=== PATIENT | male | born 2000 | race Hispanic/Latino ===

== ENCOUNTER → 2021-06-02 08:46 | Emergency (ER) | payer BC, SELFPAY ==
--- NOTE | ~2021-06-02 | XR_ITS ---
EXAMINATION: XR chest 2V DATE: 06/02/2021 09:11 INDICATION: Chest pain TECHNIQUE: PA and lateral views of the chest are obtained. COMPARISON: None available FINDINGS: The lungs are free of acute opacities. There is no pleural effusion or pneumothorax. The ca rdiomediastinal silhouette is normal. The visualized bones and soft tissues are unremarkable. IMPRESSION: 1. No acute cardiopulmonary abnormality. Reviewed, dictated and finalized at location A.
--- NOTE | 2021-06-02 08:53 | ECG_ITS ---
Measurements Intervals Epps Rate: 101 P: 67 AR: 155 QRS: -22 QRSD: 82 T: 44 QT: 325 QTc: 421 Interpretive Statements SINUS TACHYCARDIA LEFT ATRIAL ENLARGEMENT INCOMPLETE RIGHT BUNDLE BRANCH BLOCK BASELINE ARTIFACT- II, III, AVR, AVF, V2-V6 BORDERLINE ECG Electronically Signed On 06-02-2021 10:53:29 CDT by Trevor Bosch D.O.
[2021-06-02 08:56] VITALS: BP 148/91; PULSE 100; RESP 14; TEMP 36.5; O2SAT 99
[2021-06-02 09:19] LABS: Basophils Percent Auto 0.3 % (0.2-1.2); Eosinophils Absolute Auto 0.1 K/mm3 (0-0.3); Eosinophils Percent Auto 1.1 % (0-4.4); Hematocrit 45.7 % (42.0-52.0); Hemoglobin 15.5 g/dL (14.0-18.0); Immature Granulocyte Absolute 0.03 K/mm3 (0.00-0.031); Immature Granulocyte Percent A 0.5 % (0-0.5); Lymphocytes Absolute Auto 2.11 K/mm3 (0.9-3.2); Lymphocytes Percent Auto 31.9 % (18.3-44.2); Mean Corpuscular HGB Conc 33.9 g/dl (32-36); Mean Corpuscular Hemoglobin 30.2 pg (26-34); Mean Corpuscular Volume 89.1 fl (80-100); Mean Platelet Volume 9.4 fl (7.4-10.4); Monocytes Absolute Auto 0.6 K/mm3 (0.1-0.6); Monocytes Percent Auto 8.3 % (2.6-8.5); Neutrophils Absolute Auto 3.8 K/mm3 (1.3-6.7); Neutrophils Percent Auto 57.9 % (45.5-73.1); Platelet Count Result 249 k/mm3 (150-375); Red Blood Count 5.13 M/mm3 (4.6-6.20); Red Cell Distribution Width 12.5 % (11.5-14.5); White Blood Count 6.6 K/mm3 (4.5-10.0)
[2021-06-02 09:28] LABS: INR 1.2; Prothrombin Time 14.8 Seconds (11.1-14.7)
[2021-06-02 09:29] LABS: Partial Thromboplastin Time 30.7 SECONDS (22.3-36.8)
[2021-06-02 09:32] LABS: Anion Gap 8 mmol/L (8-16); Blood Urea Nitrogen 12 mg/dL (9-20); Calcium 8.9 mg/dL (8.4-10.2); Carbon Dioxide 28 mmol/L (22-30); Chloride 105 mmol/L (98-107); Estimated CRCL calculation 110 ml/min; Estimated Glomerular Filt Rate > 60; Glucose 97 mg/dL (65-110); Potassium 3.7 mmol/L (3.4-5.0); Sodium 141 mmol/L (137-145)
--- NOTE | 2021-06-02 09:36 | ED.CHESTPAIN ---
HPI - Chest Pain General Chief Complaint: Chest Pain Stated Complaint: right sided chest pain Time Seen by Provider: 06/02/21 08:53 Source: patient and RN notes reviewed Mode of arrival: ambulatory Limitations: no limitations History of Present Illness HPI narrative: This is a 21 year old male who presents for evaluation of right anterior chest pain. Patient has been having intermittent sharp, stabbing chest pain. His pain is nonradiating. He states pain only last a few minutes. He states his pain is random. He had pain with deep expiration once but he states he was unable to elicit pain again. He denies associated nausea, vomiting, cough, dizziness, diaphoresis, or shortness of breath. He denies having any pain currently. He has not taken anything for his pain. Related Data Home Medications Medication Instructions Recorded Confirmed No Home Medications 07/15/19 07/15/19 Allergies Allergy/AdvReac Type Severity Reaction Status Date / Time cefotetan Allergy Intermediate Hives Verified 06/02/21 09:01 Review of Systems Review of Systems: All systems reviewed & are unremarkable except as noted in HPI and below PMFSH Past Medical History Medical History (Updated 06/02/21 @ 11:26 by Jesise Barber MD) Pectus excavatum Surgical History Surgical History (Updated 06/02/21 @ 09:40 by Jessie Barber MD) No pertinent past surgical history Social History Social History Smoking status: Never smoker Alcohol intake: current Drinks per week: 0 Substance use: never Gender identity (if verbalized by the patient): Male Spiritual care concerns: No Agree to blood products: Yes Exam Const: General: alert Orientation/consciousness: patient oriented x3 Eyes: EOM: EOMs intact bilaterally Chest: Chest palpation & inspection: normal inspection of the chest and no tenderness Resp: Effort & Inspection: normal respiratory effort and no retractions Auscultation: clear to auscultation bilaterally Cardio: Rate: regular rate Rhythm: regular rhythm Heart sounds: no murmurs GI: GI Palp: Yes Soft to palpation, No Tenderness to palpation present (GI) and No Guarding due to palpation present (GI) Auscultation: normal bowel sounds Skin: General skin exam: normal color Rashes: no rashes Neuro: General: patient oriented x3, moves all extremities and CN's II-XI intact bilaterally Psych: Mental Status: mental status grossly normal Affect: normal affect Course Reevaluation(s) Reevaluation #1: I discussed with patient labs , EKG, chest xray are unremarkable. He has no pain. He denies family history of heart disease or aneursym. Date: 06/02/21 Time: 11:20 Vital Signs Vital signs: Vital Signs Temperature 97.7 F 06/02/21 08:56 Pulse Rate 100 06/02/21 08:56 Respiratory Rate 14 06/02/21 08:56 Blood Pressure 148/91 H 06/02/21 08:56 Pulse Oximetry 99 06/02/21 08:56 Temperature 97.7 F 06/02/21 10:51 Pulse Rate 86 06/02/21 10:51 Respiratory Rate 16 06/02/21 10:51 Blood Pressure 125/70 06/02/21 10:51 Pulse Oximetry 100 06/02/21 10:51 MDM - Chest Pain Lab Data Attestation: I reviewed the patient's lab results. Result diagrams: 06/02/21 09:07 06/02/21 09:07 Labs: Lab Results 06/02/21 06/02/21 06/02/21 Range/Units 09:07 09:07 09:07 WBC 6.6 (4.5-10.0) K/mm3 RBC 5.13 (4.6-6.20) M/mm3 Hgb 15.5 (14.0-18.0) g/dL Hct 45.7 (42.0-52.0) % MCV 89.1 (80-100) fl MCH 30.2 (26-34) pg MCHC 33.9 (32-36) g/dl RDW 12.5 (11.5-14.5) % Plt Count 249 (150-375) k/mm3 MPV 9.4 (7.4-10.4) fl Immature Gran % (Auto) 0.5 (0-0.5) % Neut % (Auto) 57.9 (45.5-73.1) % Lymph % (Auto) 31.9 (18.3-44.2) % Williams % (Auto) 8.3 (2.6-8.5) % Eos % (Auto) 1.1 (0-4.4) % Baso % (Auto) 0.3 (0.2-1.2) % Lymph # (Auto) 2.11 (0.9-3.2)
[2021-06-02 09:42] LABS: Troponin I < 0.012 ng/mL (0.000-0.034)
[2021-06-02 10:51] VITALS: BP 125/70; PULSE 86; RESP 16; TEMP 36.5; O2SAT 100
[2021-06-02 10:58] LABS: D Dimer 0.27 ug/mL (<0.48)
== END | disposition home or self-care (01) ==
PROVIDERS: Emergency Provider General Practice
DX: R07.89 Other chest pain (principal); R00.0 Tachycardia, unspecified; R94.31 Abnormal electrocardiogram [ECG] [EKG]; I45.10 Unspecified right bundle-branch block
CPT/HCPCS: 36415; 71046; 80048; 84484; 85025; 85380; 85610; 85730; 93005; 99284; J1170

== ENCOUNTER 2024-07-15 22:39 | Emergency (ER) | payer OTHER, SELFPAY ==
[2024-07-15 22:39] VITALS: BP 131/95; PULSE 98; RESP 16; TEMP 36.4; O2SAT 100
--- NOTE | 2024-07-16 00:25 | PC.NURSE ---
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
--- NOTE | 2024-07-16 00:59 | PC.NURSE ---
pt being seen by edsalome farfan in triage [facility]
--- NOTE | 2024-07-16 01:16 | ED.EAR ---
HPI - Ear Problem General Chief complaint: Ear Stated complaint: left ear pain Time Seen by Provider: 07/16/24 01:10 Source: patient Mode of arrival: ambulatory Limitations: no limitations History of Present Illness HPI Narrative: This is a 24-year-old male who presents to the ED for chief complaint of left ear pain onset over the past couple of days. Reports the area is very tender to touch and feels like the inner ear is swollen. Reports it is draining clear, malodorous liquid. He also states that he has had this in the past many years ago. Denies fevers, chills, nausea, vomiting, immuno compromising conditions Related Data Allergies Allergy/AdvReac Type Severity Reaction Status Date / Time cefotetan Allergy Intermediate Hives Verified 07/15/24 22:42 Review of Systems Review of Systems: All systems as dictated in [facility] Past Medical History Medical History (Updated 07/16/24 @ 01:21 by Mario Alberto Reddy PA-C) Pectus excavatum Surgical History Surgical History (Updated 06/02/21 @ 09:40 by Jessie Barber MD) No pertinent past surgical history Social History Social History Smoking status: Never smoker Alcohol intake: current Drinks per week: 0 Substance use: never Gender identity (if verbalized by the patient): Male Spiritual care concerns: No Agree to blood products: Yes Exam Narrative: GENERAL: Well-appearing, well-nourished, and in no acute distress. HEAD: Normocephalic, atraumatic. EYES: PERRLA and EOMI. ENT: Left external ear canal is swollen. Difficult to visualized tympanic membrane. There is purulent drainage present. Erythema present and tenderness. No mastoid redness or tenderness. No necrotic appearing skin Nares clear, no rhinorrhea or epistaxis. Mucous membranes moist. Oropharynx without tonsillar hypertrophy exudate or other lesions. NECK: Supple. No adenopathy or masses. CHEST: No respiratory distress. Clear to auscultation. No wheezes rales or rhonchi HEART: Regular rate and rhythm. No murmur heard. Normal peripheral pulses. ABDOMEN: Soft, nontender, nondistended, normal active bowel sounds. MSK: Normal range of motion. No edema. SKIN: Warm, dry, no rash. NEURO: Alert and oriented x4. No focal deficits. PSYCH: Normal mood and affect. Course Vital Signs Vital signs: Vital Signs Temperature 97.6 F 07/15/24 22:39 Pulse Rate 98 07/15/24 22:39 Respiratory Rate 16 07/15/24 22:39 Blood Pressure 131/95 H 07/15/24 22:39 Pulse Oximetry 100 07/15/24 22:39 Temperature 97.6 F 07/15/24 22:39 Pulse Rate 98 07/15/24 22:39 Respiratory Rate 16 07/15/24 22:39 Blood Pressure 131/95 H 07/15/24 22:39 Pulse Oximetry 100 07/15/24 22:39 Medical Decision Making MDM Narrative Medical decision making narrative: This is a 24-year-old male who presents to the ED for chief complaint of left ear canal pain and swelling along with drainage. Vitals are normal. Exam is remarkable for the above with tenderness to the canal and drainage. No mastoid tenderness. No evidence on exam of malignant otitis externa or mastoiditis. Patient was given ear wick and 1st dose of ciprofloxacin drops. Rx for Ciprodex given. Patient will be discharged in stable condition. Supportive measures discussed and return precautions given. Patient is understanding and agreeable with plan for discharge with PCP follow-up. Vital Signs Vital Signs: Vital Signs Temperature 97.6 F 07/15/24 22:39 Pulse Rate 98 07/15/24 22:39 Respiratory Rate 16 07/15/24 22:39 Blood Pressure 131/95 H 07/15/24 22:39 Pulse Oximetry 100 07/15/24 22:39 Temperature 97.6 F 07/15/24 22:39 Pulse Rate 98 07/15/24 22:39 Respiratory Rate 16 07/15/24 22:39 Blood Pressure 131/95 H 07/15/24 22:39 Pulse Oximetry 100 07/15/24 22:39 Discharge Plan Discharge Clinical Impression: Otitis externa Patient Disposition: Home, Self-Care Condition: Stable Instructions: Antibiotic Form, Swimmer's Ear (ED) Additional Instructions: Exam today does show evidence of otitis externa. This is also called swimmer's ear. Please use the ear wick to administer antibiotic drops at home and follow-up with ENT. If you have any new or worsening symptoms please return to the ER for further evaluation. Prescriptions: New ciprofloxacin-dexamethasone 0.3-0.1 % drops,suspension 4 drp LEFT EAR Q12H 7 Days Qty: 7.5 0RF No Action ibuprofen 600 mg Tablet 600 mg PO Q6H PRN (Reason: Pain Rated 1-3) Qty: 20 0RF hydrocodone-acetaminophen 5-325 mg tablet 1 tablet PO Q6H MDD 8 tablets in 24 hours PRN (Reason: pain) Qty: 25 0RF Follow-up/Referrals: Ayo Mckinley MD [Physician] - UNKNOWN,DOCTOR [Primary Care Provider] - Time of Disposition: 01:21
[2024-07-16] MEDS: CIPROFLOXACIN HC OTIC 10 ML 3 DROP LEFT EAR (01:47)
[2024-07-16 02:10] VITALS: BP 117/76; PULSE 76; RESP 16; TEMP 37; O2SAT 98
== END 2024-07-16 02:12 | disposition home or self-care (01) ==
LOC: ANHED 07-16 02:00
PROVIDERS: Emergency Provider Physician Assistant
DX: H65.22 Chronic serous otitis media, left ear (principal)
CPT/HCPCS: 99283; A9270